=== PATIENT | female | born 1930 | race Caucasian/White ===

== ENCOUNTER → 2016-03-28 | Outpatient (CLI) | payer MEDICARE ==
[~2016-03-28] MED LIST: ASPIR LOW81 MG PO; CALCIUM300 MG; CARDIZEM CD 12120 MG PO; CARDIZEM CD120 M1 PO; COLACE100 M1 PO; DILTIAZEM120 MG PO; DILTIAZEM30 MG; DULCOLAX S10 MG/SUPP REC; DURAGESIC25 MCG/PAT TD; FERROUS SU325 MG/TAB PO; FOSAMAX70 MG PO; FUROSEMIDE PO; LEVAQUIN 2250 MG/TAB PO; MEDI-FIRST ASP325 MG PO; MIACALCIN NASA3.7 ML NS; MIRALAX PA17 GM/Dose PO; NORCO 325 MG-51 TAB PO; OYSTER SHELL C1 EAC4 PO; OYSTER SHELL C500 M3 PO; RT ALBUTER2.5 MG/0.5 INH; SIMVASTATIN40 MG; SUNMARK PAIN R325 MG PO; ZOCOR 10MG10 MG PO
== END ==
LOC: LAB 06:25
DX: E46 Unspecified protein-calorie malnutrition (principal)